=== PATIENT | female | born 1950 | race Caucasian/White ===

== ENCOUNTER → 2019-11-09 | Outpatient (CLI) | payer OTHER ==
[~2019-11-09] MED LIST: AMBIEN 5 MG TABL5 M1; AMOXICILLIN 50500 M1 PO; COZAAR 50 MG TA50 M2 PO; GLUMETZA500 PO; LEVOTHYROXINE 0.15MG PO; NORVASC10 MG PO; PROVENTIL HFA6.7 G1; ZANAFLEX4 MG PO
== END ==
LOC: ULTRA 15:17
DX: M79.604 Pain in right leg (principal)